=== PATIENT | male | born 1990 | race Caucasian/White ===

== ENCOUNTER 2019-01-16 03:04 | Emergency (ER) | payer OTHER ==
[~2019-01-16] VITALS: Ht 175.3 cm; Wt 68.0 kg
[2019-01-16 03:09] VITALS: BP 128/90
--- NOTE | 2019-01-16 03:09 | NUR ---
TO BED # 09 AMBULATORY
--- NOTE | 2019-01-16 03:12 | NUR ---
PT CAME TO ER C/O N/V/D. PER PT HE WAS IN [place] AND RETURNED HOME 01/14/19. PT HAD N/V ON 01/13 AND 01/14. TODAY PT HAS WATERY DIARRHEA "ABOUT 20 TIMES." PT ALSO STATES HE "FEELS CHEST PRESSURE AND FEELS LIKE ITS HARD TO BREATHE." PT RESPIRATIONS ARE EVEN AND UNLABORED. O2 SATURATION AT 100% ON RA. PT DENIES ANY ABDOMINAL PAIN. PAIN LEVEL 0/10. NKA. NO MED HX. SAFETY MEASURES IN PLACE. ERMD AT BEDSIDE.
[2019-01-16] MEDS ORDERED: KETOROLAC 15 MG/ML VIAL IVP ONE (03:25)
[2019-01-16] MEDS ORDERED: ONDANSETRON 4 MG/2 ML VIAL IVP ONE (03:25)
[2019-01-16] MEDS ORDERED: NACL 0.9% 1,000 ML IV ONE (03:25)
--- NOTE | 2019-01-16 03:35 | NUR ---
PT REFUSED ZOFRAN AND TORADOL. ERMD MADE AWARE.
--- NOTE | 2019-01-16 03:49 | NUR ---
PT LEFT TO XRAY VIA WHEELCHAIR
[2019-01-16 03:51] LABS: ALBUMIN 3.7 g/dL (3.4-5.0); ANION GAP 16.8 (8-16); CARBON DIOXIDE 23.4 mmol/L (21-32); POTASSIUM 3.2 mmol/L (3.5-5.1); TOTAL BILIRUBIN 0.5 mg/dL (0.0-1.0)
--- NOTE | 2019-01-16 04:05 | NUR ---
PT BACK FROM X RAY
[2019-01-16 04:09] LABS: BASOPHILS % (AUTO) 0.2 % (0.0-2.0); EOSINOPHILS # (AUTO) 0.1 K/uL (0-0.4); EOSINOPHILS % (AUTO) 0.9 % (0.0-4.0); HEMATOCRIT 43.8 % (36-52); HEMOGLOBIN 14.8 g/dL (12.0-18.0); LYMPHOCYTES % (AUTO) 13.7 % (20.5-51.1); MEAN CORPUSCULAR HEMOGLOBIN 29 pg (27-31); MEAN CORPUSCULAR HGB CONC 34 g/dL (33-37); MEAN CORPUSCULAR VOLUME 84.5 fL (80-94); MONOCYTES # (AUTO) 0.9 K/uL (0.8-1.0); MONOCYTES % (AUTO) 11.3 % (1.7-9.3); NEUTROPHILS # (AUTO) 5.6 K/uL (1.8-7.7); NEUTROPHILS % (AUTO) 73.9 % (42.2-75.2); PLATELET COUNT (AUTO) 224 K/uL (140-450); RED BLOOD CELL COUNT(AUTO) 5.19 MIL/uL (4.20-6.10); RED CELL DISTRIBUTION WIDTH 13.6 % (11.6-13.7); WHITE BLOOD COUNT (AUTO) 7.6 K/uL (4.8-10.8)
--- NOTE | 2019-01-16 04:30 | NUR ---
PT AMBULATED TO RESTROOM
--- NOTE | 2019-01-16 04:52 | NUR ---
ERMD AT BEDSIDE
[2019-01-16 04:59] VITALS: BP 128/90
--- NOTE | 2019-01-16 04:59 | NUR ---
Patient discharged with v/s stable. Written and verbal after care instructions given and explained. Pt encouraged to eat BRAT diet; bananas, rice, applesauce, or toast. Patient verbalized understanding. Ambulatory with steady gait. All questions addressed prior to discharge. Advised to follow up with PMD.
== END 2019-01-16 04:55 | disposition home or self-care (01) ==
LOC: MED 03:04
DX: A08.4 Viral intestinal infection, unspecified (principal)
CPT/HCPCS: 36415; 74022; 80053; 85025; 96360; 99284; J7030